=== PATIENT | female | born 2000 | race Caucasian/White ===

== ENCOUNTER 2024-05-10 09:14 | Emergency (ER) | payer SELFPAY ==
[~2024-05-10] VITALS: Ht 157.5 cm; Wt 68.0 kg
[2024-05-10 09:20] VITALS: PULSE 86; RESP 15; TEMP 98.8; O2SAT 100
== END 2024-05-10 09:40 | disposition home or self-care (01) ==
LOC: ER 09:20
DX: N64.4 Mastodynia (principal)
CPT/HCPCS: 99282